=== PATIENT | female | born 1960 | race Caucasian/White ===

== ENCOUNTER 2016-11-27 10:17 | Emergency (ER) | payer OTHER | END 2016-11-27 11:49 | disposition home or self-care (01) | LOC: ER 10:17 | DX: J06.9 Acute upper respiratory infection, unspecified (principal); R05 Cough; E66.9 Obesity, unspecified; Z78.0 Asymptomatic menopausal state; E11.40 Type 2 diabetes mellitus with diabetic neuropathy, unspecified; I10 Essential (primary) hypertension; E78.5 Hyperlipidemia, unspecified; Z86.718 Personal history of other venous thrombosis and embolism | CPT/HCPCS: 71020; 87400; 99283 ==

== ENCOUNTER 2016-12-24 16:46 | Emergency (ER) | payer OTHER | END 2016-12-24 17:10 | disposition home or self-care (01) | LOC: ER 16:46 | DX: J20.9 Acute bronchitis, unspecified (principal); J02.9 Acute pharyngitis, unspecified; R05 Cough; E11.9 Type 2 diabetes mellitus without complications; Z79.899 Other long term (current) drug therapy; Z79.01 Long term (current) use of anticoagulants; Z79.84 Long term (current) use of oral hypoglycemic drugs | CPT/HCPCS: 99282; 99283 ==